=== PATIENT | male | born 1940 | race Caucasian/White ===

== ENCOUNTER 2021-04-15 08:38 | Emergency (ER) | payer MEDICARE, OTHER ==
--- NOTE | 2021-04-15 09:00 | ED Physician Documentation ---
PD HPI UPPER EXT INJURY - Stated complaint Stated Complaint: RT ARM SWELLING - Chief complaint Chief Complaint: Ext Problem - History obtained from History obtained from: Patient - History of Present Illness Location: Right, Elbow, Forearm Type of injury: No: Fall, Twist (he had driven from [place] with his , arrived 3 days ago. They went to grocery store 2 days ago and he was bringing in small bag and lifted it to counter, feeling pain in elbow/forearm. Has had continued pain and now also swelling of forearm/hand.) Where injury occurred: Other (staying with family, visiting here from [place]. returning in 1 1/2 weeks.) Timing - onset: How many days ago (2) Timing - duration: Days (2) Worsened by: Moving (supination hurts the most, but flexion as well at the elbow.) Associated symptoms: Swelling (forearm and hand for 2 days.). No: Weakness, Numbness Contributing factors: Anticoagulated (with his last INR check 5 days ago and was 2.3). No: Prior ortho surgery Similar symptoms before: Has not had sx before Recently seen: Not recently seen Review of Systems Constitutional: denies: Fever, Chills Nose: denies: Rhinorrhea / runny nose, Congestion Throat: denies: Sore throat Respiratory: denies: Cough Skin: denies: Rash, Lesions Neurologic: denies: Focal weakness, Numbness PD PAST MEDICAL HISTORY - Past Medical History Cardiovascular: Congestive heart failure, Atrial fibrillation Respiratory: None Endocrine/Autoimmune: Type 2 diabetes GI: None - Present Medications Home Medications: Ambulatory Orders Medication Instructions Recorded Confirmed Amiodarone [Pacerone] 1 tab PO DAILY 04/15/21 04/15/21 Aspirin [[place] Aspirin] 1 tab PO DAILY 04/15/21 04/15/21 Atorvastatin Calcium 1 tab PO DAILY 04/15/21 04/15/21 Furosemide [Lasix] 1 tab PO BID 04/15/21 04/15/21 Glipizide [Glipizide ER] 1 tab PO BID 04/15/21 04/15/21 HYDROcod/ACETAM 5/325 [[place] 5/325] 1 ea PO Q6H PRN #12 tablet 04/15/21 Hydralazine HCl 1 tab PO TID 04/15/21 04/15/21 Lisinopril [Zestril] 1 tab PO DAILY 04/15/21 04/15/21 Metoprolol Tartrate [Lopressor] 25 mg PO BID 04/15/21 04/15/21 Omeprazole 1 tab PO DAILY 04/15/21 04/15/21 Warfarin [Coumadin] 5 mg PO BID 04/15/21 04/15/21 amLODIPine [Norvasc] 1 tab PO BID 04/15/21 04/15/21 metFORMIN [Glucophage] 2,000 mg PO DAILY 04/15/21 04/15/21 - Allergies Allergies/Adverse Reactions: Allergies Allergy/AdvReac Type Severity Reaction Status Date / Time No Known Drug Allergies Allergy Verified 04/15/21 08:54 PD ED PE NORMAL - Vitals Vital signs reviewed: Yes - General General: Alert and oriented X 3, No acute distress, Well developed/nourished - Derm Derm: Normal color, Warm and dry - Extremities Extremities: Other (tender radial side proximal forearm with local swelling. Moderate general swelling of distal forearm and hand. Normal pulses at wrist. Good color and cap refill in fingers. Finger movement without pain. Supination forearm hurts the most with guarding movement against resistance due to pain.) - Neuro Neuro: Alert and oriented X 3, No motor deficit, No sensory deficit, Normal speech Results - Vitals Vitals: Vital Signs - 24 hr 04/15/21 10:50 Heart Rate 85 Respiratory 16 Rate Blood Pressure 136/80 H O2 Saturation 95 Oxygen O2 Source Room air - Labs Labs: Laboratory Tests 04/15/21 04/15/21 04/15/21 09:52 09:52 09:52 WBC 8.1 RBC 3.98 L Hgb 12.9 L Hct 38.9 L MCV 97.7 H MCH 32.4 H MCHC 33.2 RDW 15.1 H Plt Count 188 MPV 10.5 Neut # (Auto) 5.9 Lymph # (Auto) 0.9 L [place] # (Auto) 0.9 Eos # (Auto) 0.3 Baso # (Auto) 0.1 Absolute Nucleated RBC 0.00 Nucleated RBC % 0.0 PT 70.2 H INR 7.1 H* Sodium 140 Potassium 3.3 L Chloride 104 Carbon Dioxide 26 Anion Gap 10.0 BUN 27 H Creatinine 1.3 H Estimated GFR (MDRD) 53 L Glucose 154 H Calcium 9.4 Total Creatine Kinase 111 - Rads (name of study) right elbow Radiology: Prelim report reviewed (no fractures), See rad report duplex right upper ext Radiology: Prelim report reviewed, Discussed with rads (tech reports no DVT but there is fluid collection prox forearm c/w hematoma. ), See rad report PD MEDICAL DECISION MAKING - ED course Complexity details: reviewed results (U/S shows no DVT in arm, but does show apparent hematoma in muscle in area of pain. His INR is elevated at 7.1 with some bleeding (hematoma) but not significant bleeding, so looking for partial reversal. Gave PO dose Vit K and hold dose tonight. Recheck INR 2 days (likely back to ER or walk in).), considered differential (seems like muscle strain of brachioradialis proximally. Has swelling of forearm/hand with pain on movement, but normal sensation, color, cap refill and job superintendent distally. Presume some increased compartment pressure with the pain, but not advance to compartment syndrome. ), d/w patient Departure - Departure Disposition: 01 Home, Self Care Clinical Impression: Muscle strain of forearm, Hematoma, Supratherapeutic INR Condition: Stable Instructions: ED Hematoma Prescriptions: HYDROcod/ACETAM 5/325 [[place] 5/325] 1 ea PO Q6H PRN #12 tablet PRN Reason: Pain Comments: Use the sling to reduce motion and movement of the elbow and forearm and therefore reduce swelling and pain. Hold your Coumadin level tonight. You could take just a 5 mg dose tomorrow. I would suggest having your Coumadin level rechecked in 2 days. We gave you some vitamin K which will reverse it a bit and then holding the dose should get you closer to a normal level. We do not wanted to go too low. Since you are visiting from out of town, you can go to one of the walk-in clinics or return to the ER for a recheck of your Coumadin. Meanwhile Tylenol every 4-6 hours if needed for pain or hydrocodone if needed for worse pain. You may develop some bruising around the elbow and forearm from the hematoma in the muscle. That is okay and would just be coming to the surface. I would anticipate improvement in the pain in the arm over the next few days. Return if worsening more. I am prescribing a short course of narcotic pain medication for you. These are potentially dangerous and addictive medications that should be used carefully. These medications may constipate you. Take an [id number] stool softener such as docusate twice daily with plenty of water while taking these medications. If you go 24 hours without a bowel movement, take [id number] MiraLAX, per package instructions. Do not drink or drive while taking these medications. If you received narcotic or sedating medications while in the emergency department do not drive for 24 hours. Store this medication in a safe, secure place and out of reach of children. It is a violation of federal law to give or sell this medication to another person or to use in a manner other than prescribed. The ED will not refill narcotic prescriptions, including prescriptions lost or stolen. You can dispose of unwanted medications at the [facility]'s office or at several pharmacies such as [facility]. Discharge Date/Time: 04/15/21 12:14
[2021-04-15] MEDS: HYDROcod/ACETAM 5/325 MG TABLET PO STA (09:34)
[2021-04-15 09:59] LABS: BASOPHILS # (AUTO) 0.1 10^3/uL (0.0-0.1); BASOPHILS % (AUTO) 0.7 %; EOSINOPHILS # (AUTO) 0.3 10^3/uL (0.0-0.7); EOSINOPHILS % (AUTO) 3.8 %; HCT - HEMATOCRIT 38.9 % (42.0-52.0); HGB - HEMOGLOBIN 12.9 g/dL (14.0-18.0); LYMPHOCYTES # (AUTO) 0.9 10^3/uL (1.5-3.5); LYMPHOCYTES % (AUTO) 10.9 %; MEAN CORPUSCULAR HEMOGLOBIN 32.4 pg (27.0-31.0); MEAN CORPUSCULAR HGB CONC 33.2 g/dL (32.0-36.0); MEAN CORPUSCULAR VOLUME 97.7 fL (80.0-94.0); MEAN PLATELET VOLUME 10.5 fL (7.4-11.4); MONOCYTES # (AUTO) 0.9 10^3/uL (0.0-1.0); MONOCYTES % (AUTO) 10.6 %; NEUTROPHILS # (AUTO) 5.9 10^3/uL (1.5-6.6); NEUTROPHILS % (AUTO) 73.6 %; PLT - PLATELET COUNT 188 10^3/uL (130-450); RED BLOOD COUNT 3.98 10^6/uL (4.70-6.10); RED CELL DISTRIBUTION WIDTH 15.1 % (12.0-15.0); WHITE BLOOD COUNT 8.1 x10^3/uL (4.8-10.8)
--- NOTE | 2021-04-15 10:02 | XRAY Report ---
PROCEDURE: Elbow 3 View RT INDICATIONS: right elbow pain after lifting TECHNIQUE: 3 views of the elbow were acquired. COMPARISON: None FINDINGS: Bones: No fractures or dislocations. No suspicious bony lesions. Age-appropriate degenerative jin ges are seen. Soft tissues: No elbow joint effusion. No suspicious soft tissue calcifications. IMPRESSION: No plain film abnormality is seen to explain the patient's presenting symptoms. If it would be helpful for clinical management decision making, please consider a dedicated, schedule d elbow MRI for further evaluation (assuming that there is no contraindication). Reviewed by: Darrel Beltrán MD on 04/15/2021 9:01 AM [facility] Approved by: Darrel Beltrán MD on 04/15/2021 9:01 AM [facility] Station ID: [id number]
[2021-04-15 10:05] LABS: PT - PROTHROMBIN TIME 70.2 secs (9.9-12.6)
[2021-04-15 10:11] LABS: CALCIUM 9.4 mg/dL (8.5-10.3); CREATININE 1.3 mg/dL (0.6-1.2); POTASSIUM 3.3 mmol/L (3.5-5.0)
[2021-04-15 10:12] LABS: INR 7.1 (0.8-1.2)
[2021-04-15 10:50] VITALS: BP 136/80
--- NOTE | 2021-04-15 10:54 | Ultrasound Report ---
PROCEDURE: Duplex Ext Veins Right INDICATIONS: right arm swelling/pain, drove from [place] TECHNIQUE: Real-time imaging, as well as color and pulse Doppler interrogation, were performed of the right uppe r extremity deep veins from the inguinal ligament to the popliteal fossa. COMPARISON: None. FINDINGS: The deep veins are normally compressible, and free of intraluminal thrombus. Color and pu lse Doppler demonstrate normal phasic intraluminal flow. There is normal augmentation response to di stal compression maneuver. Within the antecubital fossa, there is a focal nonvascular fluid collection that measures 3.5 x 2 x 2 .9 cm. IMPRESSION: No findings of deep venous thrombosis are seen. Nonvascular fluid collection seen within the antecubital fossa. This is felt most likely to represent a hematoma, although differential diagnosis would also include a soft tissue mass. If this does not resolve quickly, then please consider a dedicated follow-up ultrasound in 6 weeks. Note: Concordant preliminary findings given by the cath lab radiology technician upon the completion of the examination to Dr. Bautista. Reviewed by: Darrel Beltrán MD on 04/15/2021 9:53 AM [facility] Approved by: Darrel Beltrán MD on 04/15/2021 9:53 AM [facility] Station ID: [id number]
[2021-04-15] MEDS ORDERED: PHYTONADIONE 10 MG/ML AMP PO ONE (11:19)
[2021-04-15] MEDS ORDERED: CHERRY SYRUP 10 ML UDC PO ONE (11:19)
== END 2021-04-15 12:14 | disposition home or self-care (01) ==
LOC: ED 08:38
DX: S56.911A Strain of unspecified muscles, fascia and tendons at forearm level, right arm, initial encounter (principal); X50.0XXA Overexertion from strenuous movement or load, initial encounter; T14.8XXA Other injury of unspecified body region, initial encounter; I48.91 Unspecified atrial fibrillation; E11.9 Type 2 diabetes mellitus without complications; Z79.84 Long term (current) use of oral hypoglycemic drugs; R79.1 Abnormal coagulation profile
CPT/HCPCS: 36415; 73080; 80048; 82550; 85025; 85610; 93971; 99283; 99284; A9270

== ENCOUNTER 2021-04-17 11:16 | Outpatient (CLI) | payer MEDICARE, OTHER | END 2021-04-17 23:59 | disposition home or self-care (01) | LOC: LAB.S 11:16 | PROVIDERS: ATTEND Emergency Medicine | DX: Z79.01 Long term (current) use of anticoagulants (principal) | CPT/HCPCS: 36416; 85610 ==